=== PATIENT | male | born 1945 | race Caucasian/White ===

== ENCOUNTER → 2016-09-06 | Outpatient (CLI) | payer OTHER, BC ==
[~2016-09-06] MED LIST: ABIR1TAB PO; ASPEC81 PO; ASPI81TA21 PO; ATOR-22 PO; AZEL0.057; AZEL0.057 TOP; BIOTCAP2 PO; CALCTAB7 PO; DOCU-94 PO; FISHOIL PO; FNTTP25 TD; GLUCTAB7 PO; LEUP30IN3 IM; METR1GEL3 TOP; MTRG45 TOP; MULT-190 PO; MULT-506 PO; MULT-845 PO; OMEG120013 PO; PRED-301 PO; RXC/5 PO; SENN-65 PO; TAMS0.4C38 PO; XGEVA IM; XGVI IM; [UNRECOGNIZED DRUG - CODE]; [UNRECOGNIZED DRUG - CODE]; oxycodone hcl PO
--- NOTE | 2016-09-06 11:34 | DIAGNOSTIC IMAGING REPORT ---
ADDENDUM Addendum: Comparison was made to outside CT of the abdomen and pelvis from [facility] dated May 22, 2016. The size of numerous blastic metastases within the lower thorax has increased since exam of May 22, 2016 consistent with progression of blastic metastatic disease. Electronically signed by: Jp Pena M.D. 09/17/2016 8:01 AM Dictated Date/Time: 09/17/2016 8:[address] OF THE CHEST WITH IV CONTRAST CLINICAL HISTORY: Prostate cancer. COMPARISON STUDY: Chest CT June 04, 2016. TECHNIQUE: Following IV administration of 92 mL of Optiray-320, helical axial images of the chest were obtained. Images were viewed in the axial, sagittal and coronal planes. IV contrast was administered without complication. FINDINGS: The size and number of numerous blastic metastases has moderately increased since exam June 04, 2016. No pathologic fracture is identified. A 2.1 cm lesion within the T5 vertebral body previously measured approximately 1 cm. There has also been interval development of mild mediastinal and left hilar lymphadenopathy. An index left hilar node measures 1.5 cm in short axis diameter. This was previously normal in size. An index prevascular node measures 1.9 x 0.9 cm. Index precarinal lymph node measures 1.5 cm. The heart is mildly enlarged. There is no pericardial effusion. The previously described right middle lobe nodule has decreased in size. It now measures 5 mm. It previously measured 9 mm. Numerous tiny subpleural nodules and reticulation rib. Unchanged. The abdomen and pelvis will be reported separately. IMPRESSION: 1. Moderate progression of extensive blastic metastases since exam of June 04, 2016. 2. Interval development of mild mediastinal and left hilar lymphadenopathy. While nonspecific, this could reflect metastatic disease. 3. Interval decrease in size of the previously discussed right middle lobe nodule. Electronically signed by: Jp Pena M.D. 09/06/2016 11:33 AM Dictated Date/Time: 09/06/2016 11:22 AM
--- NOTE | 2016-09-06 11:35 | DIAGNOSTIC IMAGING REPORT ---
ADDENDUM Addendum: Images from an abdomen and pelvis CT on 05/22/2016 from [facility] were made available for comparison. The subtle hypodense subcentimeter hepatic lesions seen in the prior study are barely visible at this time. There appears to be a single 6 mm hypodense lesion persisting within the right hepatic lobe on image 96 of 486. No new hepatic lesions identified. Left-sided hydronephrosis has resolved. 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 Electronically signed by: Sterling Álvarez M.D. 09/13/2016 11:00 AM Dictated Date/Time: 09/13/2016 10:57 AM ORIGINAL REPORT ABDOMEN AND PELVIS CT WITH IV AND ORAL CONTRAST CT DOSE: 510.70 mGy.cm HISTORY: Prostate cancer. TECHNIQUE: Multiaxial CT images of the abdomen and pelvis were performed following the use of intravenous and oral contrast. COMPARISON STUDY: Abdomen and pelvis CT 01/05/2015. Chest CT 06/04/2016. Outside hospital abdomen and pelvis CT 12/02/2015. FINDINGS: Significant progression of the osteoblastic metastatic disease compared to the prior studies. L3-L5 posterior decompression and fusion. Severe disc space narrowing at L2-L3. Progressive calcification surrounding the L2-L3 disc space with progressive severe central canal narrowing at this location. The liver, gallbladder, pancreas, and spleen are unremarkable. Normal right adrenal gland. Stable 9 mm nodule within the left adrenal gland. No hydronephrosis. No retroperitoneal lymphadenopathy. Moderate bladder wall thickening, unchanged. No pelvic lymphadenopathy. Moderate stool within the colon. No bowel wall thickening or obstruction. IMPRESSION: 1. Progression of the osteoblastic metastatic disease. 2. Progressive calcification surrounding the severely narrowed L2-L3 disc space. This results in progressive severe central canal narrowing at this level. 3. Stable 9 mm left adrenal gland nodule. 4. Moderate bladder wall thickening, unchanged. Electronically signed by: Sterling Álvarez M.D. 09/06/2016 11:33 AM Dictated Date/Time: 09/06/2016 11:21 AM
--- NOTE | 2016-09-06 12:23 | DIAGNOSTIC IMAGING REPORT ---
WHOLE BODY BONE SCAN HISTORY: Prostate cancer. RADIOTRACER: 25.6 mCi Tc-99m MDP STUDY/IMAGES: Planar anterior and posterior whole body imaging was performed 3 hours following the intravenous administration of radiotracer. COMPARISON: Outside hospital bone scan 05/22/2016 and 12/02/2015. FINDINGS: Significant progression of near diffuse patchy radiotracer uptake seen within the majority of the axial and appendicular skeleton. No abnormal radiotracer uptake seen within the calvarium, forearms, or lower legs. Remaining osseous structures demonstrate radiotracer uptake consistent with metastatic disease. IMPRESSION: Significant progression of near diffuse patchy radiotracer uptake seen within the majority of the axial and appendicular skeleton as described above consistent with metastatic disease. Electronically signed by: Sterling Álvarez M.D. 09/06/2016 12:22 PM Dictated Date/Time: 09/06/2016 12:19 PM
== END | disposition home or self-care (01) ==
LOC: C.NUCL 07:55
PROVIDERS: ATTEND Internal Medicine Hematology & Oncology
DX: C61 Malignant neoplasm of prostate (principal); C79.51 Secondary malignant neoplasm of bone

== ENCOUNTER 2016-10-21 07:14 | Emergency (ER) | payer OTHER, BC ==
[~2016-10-21] VITALS: Ht 182.9 cm; Wt 68.0 kg
[~2016-10-21 07:14] MED LIST changes: -ASPI81TA21 PO; -MTRG45 TOP; -OMEG120013 PO; -RXC/5 PO; -XGVI IM; -[UNRECOGNIZED DRUG - CODE]
[2016-10-21 07:18] VITALS: BP 136/68; PULSE 71; TEMP 36.7; O2SAT 97; Ht 182.9 cm; Wt 68.0 kg
--- NOTE | 2016-10-21 07:46 | EMERGENCY ROOM VISIT NOTE ---
History Report prepared by Thiago: Ashanti Braden Under the Supervision of: Dr. Nic Montenegro D.O. First contact with patient: 07:20 Chief Complaint: LACERATION/CUT (SUT/DERMABOND) Stated Complaint: HIT HEAD ON SHELF Nursing Triage Summary: Triage Note: Pt reports he bent over and stood up and hit and cut the top of his head at approx 2200 last night. pt denies any loc. pt reports he takes 81mg asa daily. History of Present Illness The patient is a 71 year old male who presents to the Emergency Room with complaints of a scalp abrasion that occurred last night around 2200. The patient states that he stood up and hit the top of his head on a shelf. Throughout the night, he was unable to control the bleeding. He notes that he is a prostate cancer patient and is on his 3rd week of chemotherapy treatment. He has a low hemoglobin and is scheduled for transfusion tomorrow. He takes 81 mg aspirin daily. Source of History: patient Onset: 2200 last night Position: head Quality: other (abrasion) Timing: constant Review of Systems See HPI for pertinent positives & negatives. A total of 10 systems reviewed and were otherwise negative. Past Medical & Surgical Medical Problems: (1) Prostate cancer Family History No pertinent family history stated. Social History Smoking Status: Never Smoker Marital Status: Occupation Status: retired Current/Historical Medications Scheduled Abiraterone Acetate (Zytiga), 4 TAB PO DAILY Aspirin Enteric Coated (Ecotrin Or Generic *), 81 MG PO QPM Atorvastatin (Lipitor), 20 MG PO HS Azelaic Acid (Finacea), 1 APPLN TOP DAILY Biotin (Biotin 5000), 5 MG PO QPM Calcium Carbonate-Vitamin D W/ (Caltrate 600 Plus), 1 TAB PO BID Docusate Sodium (Colace), 1 CAP PO BID Fish Oil ([place]-3), 1 TAB PO BID Iuvrtxqubdy-Srfgzrdyczu-Npr C- (Glucosamine Chondroitin), 1 TAB PO BID Leuprolide Acetate (Lupron Depot), 30 MG IM q4 months Metronidazole Hcl (Metrogel), 1 % TOP HS Multiple Vitamins W/ Minerals (Centrum Silver Adult 50+), 1 TAB PO DAILY Multivitamin (Multivitamin), 1 TAB PO QPM Ocuvite Preservision (Ocuvite Preservision), 1 TAB PO QAM Prednisone (Prednisone), 5 MG PO BID Tamsulosin Hcl (Flomax), 0.8 MG PO BID [Xgeva], 120 MG IM Q4WK [oxycodone hcl], 5 MG PO DIRECTED Scheduled PRN Senna/Docusate Sod (Senokot S), 2 TAB PO DAILY PRN for Constipation Miscellaneous Medications Azelaic Acid (Finacea) Cabazitaxel (Jevtana), 20 MG Fentanyl (Fentanyl), 25 MCG Allergies Coded Allergies: Doxycycline (Verified Allergy, Intermediate, hives in mouth and on tongue , 10/21/16) Physical Exam Vital Signs Date Time Temp Pulse Resp B/P Pulse Ox O2 Delivery O2 Flow Rate FiO2 10/21/16 07:18 36.7 71 18 136/68 97 Room Air Physical Exam CONSTITUTIONAL/VITAL SIGNS: Reviewed / noted above. GENERAL: Non-toxic in appearance. INTEGUMENTARY: Warm, dry, and [place]. HEAD: Normocephalic. There is a dime sized abrasion to the top of the head with a small amount of capillary oozing. EYES: without scleral icterus or trauma. ENT/OROPHARYNX: clear and moist. LYMPHADENOPATHY/NECK: Is supple without lymphadenopathy or meningismus. RESPIRATORY: Lungs clear and equal. CARDIOVASCULAR: Regular rate and rhythm. GI/ABDOMEN: Soft and nontender. No organomegaly or pulsatile mass. No rebound or guarding. Normal bowel sounds. EXTREMITIES: Warm and well perfused. BACK: No CVA tenderness. NEUROLOGICAL: Intact without focal deficits. PSYCHIATRIC: normal affect. MUSCULOSKELETAL: Normally developed with good muscle tone. Medical Decision & Procedures ED Course 0728: The patient was evaluated in room A10. A complete history and physical examination was performed. 0741: I discussed the results and findings with the patient. He verbalized agreement of the treatment plan. The patient was discharged home. Medical Decision No evidence of significant head injury, fracture, or infection. The patient presents with a small scrape or abrasion to the scalp on the top of the head. This occurred 10 PM last night. It is been oozing since. Dermabond was applied to the wound. The capillary oozing appears to be controlled. The patient was felt to be stable for discharge. Impression Primary Impression: Scalp abrasion Scribe Attestation The scribe's documentation has been prepared under my direction and personally reviewed by me in its entirety. I confirm that the note above accurately reflects all work, treatment, procedures, and medical decision making performed by me. Departure Information Dispostion Home / Self-Care Referrals Ander De Paz M.D. (PCP) Patient Instructions My [facility]
[2016-10-21] MEDS ORDERED: MTRG45 TOP (07:54)
[2016-10-21] MEDS ORDERED: [UNRECOGNIZED DRUG - CODE] (07:54)
[2016-10-21] MEDS ORDERED: ASPI81TA21 PO (07:54)
[2016-10-21] MEDS ORDERED: RXC/5 PO (07:54)
[2016-10-21] MEDS ORDERED: OMEG120013 PO (07:54)
[2016-10-21] MEDS ORDERED: XGVI IM (07:54)
== END 2016-10-21 07:53 | disposition home or self-care (01) ==
LOC: C.EDB 07:15 → C.EDA 07:53
DX: S00.01XA Abrasion of scalp, initial encounter (principal); W22.09XA Striking against other stationary object, initial encounter; C61 Malignant neoplasm of prostate; Z79.82 Long term (current) use of aspirin; Z79.52 Long term (current) use of systemic steroids; Z79.899 Other long term (current) drug therapy

== ENCOUNTER → 2016-12-02 | Outpatient (CLI) | payer OTHER, BC ==
[~2016-12-02] MED LIST changes: -ABIR1TAB PO; -ASPEC81 PO; +ASPI81TA21 PO; -AZEL0.057; -FISHOIL PO; -METR1GEL3 TOP; +MTRG45 TOP; +OMEG120013 PO; +RXC/5 PO; -XGEVA IM; +XGVI IM; +[UNRECOGNIZED DRUG - CODE]; -oxycodone hcl PO
== END | disposition home or self-care (01) ==
LOC: C.LAB 11:35
PROVIDERS: ATTEND Internal Medicine Hematology & Oncology
DX: C61 Malignant neoplasm of prostate (principal)

== ENCOUNTER 2016-12-03 12:51 | Inpatient (IN) | payer OTHER, BC ==
[~2016-12-03] VITALS: Ht 182.9 cm; Wt 62.4 kg
[2016-12-03] MEDS ORDERED: SODIUM CHLORIDE 0.9% 1000ML 1,000 ML IV STA ×2 (13:20)
--- NOTE | 2016-12-03 14:00 | DIAGNOSTIC IMAGING REPORT ---
CHEST ONE VIEW PORTABLE CLINICAL HISTORY: Change in mental status. History of malignancy. COMPARISON STUDY: 11/02/2011, CT scan dated 09/06/2016 FINDINGS: The heart is normal in size. There is no failure. There is no lobar consolidation. There are no pleural effusions. There is a 7 mm density within the right midlung zone laterally.[ There is mild prominence of the left mid mediastinum. Mild adenopathy cannot be excluded. IMPRESSION: 1. 7 mm right midlung zone nodule 2. Minimal prominence of the left mid mediastinum. Mild adenopathy cannot be excluded. 3. No evidence of failure. No evidence of acute parenchymal consolidation. Electronically signed by: Akin Shelby M.D. 12/03/2016 1:58 PM Dictated Date/Time: 12/03/2016 1:56 PM
[2016-12-03 14:01] LABS: HEMATOCRIT 27.7 % (42-52); MEAN CELL VOLUME 92.3 fL (80-100); MEAN CORPUSCULAR HGB CONC 32.5 g/dl (32-36); WHITE BLOOD COUNT 4.93 K/uL (4.8-10.8)
[2016-12-03 14:06] LABS: MEAN PLATELET VOLUME 10.6 fL (7.4-10.4); PLATELET COUNT 62 K/uL (130-400)
[2016-12-03 14:19] LABS: ALT/SGPT 48 U/L (12-78); AST/SGOT 563 U/L (15-37); BLOOD UREA NITROGEN 21 mg/dl (7-18); BUN/CREATININE RATIO 21.4 (10-20); CALCIUM 8.2 mg/dl (8.5-10.1); CARBON DIOXIDE 26 mmol/L (21-32); CHLORIDE 103 mmol/L (98-107); GLUCOSE 135 mg/dl (70-99); MAGNESIUM 2.1 mg/dl (1.8-2.4); SODIUM 138 mmol/L (136-145)
[2016-12-03 14:20] LABS: INR 1.3 (0.9-1.1)
[2016-12-03 14:33] LABS: ALB/GLOB RATIO 0.7 (0.9-2); ALKALINE PHOSPHATASE 279 U/L (45-117)
[2016-12-03 14:40] LABS: ANISOCYTOSIS PRESENT; COMPLETE YES; EOSINOPHIL % 0.9 %; LYMPH ABS # 0.86 K/uL (1.2-3.4); LYMPHOCYTE % 17.4 %; META ABS # 0.13 K/uL (0-0); METAMYELOCYTE % 2.6 %; MYELOCYTE % 3.5 %; NEUTROPHILS % 72.1 %; TEAR DROP CELLS 1+
--- NOTE | 2016-12-03 14:50 | EMERGENCY ROOM VISIT NOTE ---
History Report prepared by Thiago: Batool Hernandez Under the Supervision of: Dr. Carlton Smith M.D. First contact with patient: 13:08 Chief Complaint: OTHER COMPLAINT Stated Complaint: EVAL DO TO CHEMO AND PROSTATE CANCER History of Present Illness The patient is a 71 year old male who presents to the Emergency Room with complaints of a referral by his doctor that occurred earlier today. The patient' s girlfriend states that Dr. Ochoa - Urology referred the patient into the ED for admission. The patient has end stage renal disease and advanced prostate cancer. The patient still makes urine and does not have a catheter in place. He follows with Dr. Ruby - Oncology. The patient saw Dr. Ruby one week ago and received IV saline. The patient's hemoglobin one week ago was around 9.5. The patient's girlfriend states that the patient has been going downhill since his last chemotherapy treatment on October 24. He received two blood transfusions after that treatment. Additionally, the patient has lost about 20- 30 lbs since then. The patient states that they stopped his chemotherapy treatments because they have not been working. The patient is experiencing shortness of breath especially with exertion, which his girlfriend states has been getting progressively worse. He is also experiencing nausea and has not been eating much over the last month. He denies fevers. The patient's girlfriend states that the patient experienced diarrhea October 24 to November 03, but that has resolved. The patient denies any pain and states that he has a fentanyl patch. Source of History: patient, spouse/significant other (girlfriend) Onset: earlier today Position: other (global) Quality: other (referral by doctor) Associated Symptoms: + SOB (worse with exertion), + nausea, No fevers Note: weight loss Review of Systems See HPI for pertinent positives & negatives. A total of 10 systems reviewed and were otherwise negative. Past Medical & Surgical Medical Problems: (1) Prostate cancer (2) Rhabdomyolysis (3) Severe protein-calorie malnutrition Family History Cancer Diabetes mellitus Heart disease Hypertension Social History Smoking Status: Never Smoker Marital Status: Occupation Status: retired Current/Historical Medications Scheduled Aspirin Enteric Coated (Ecotrin Or Generic), 81 MG PO QPM Atorvastatin (Lipitor), 20 MG PO HS Azelaic Acid (Finacea), 1 APPLN TOP DAILY Calcium Carbonate-Vitamin D W/ (Caltrate 600 Plus), 2 TAB PO DAILY Denosumab (Xgeva), 120 MG IM Q4WK Docusate Sodium (Colace), 100 MG PO BID Fentanyl (Fentanyl), 25 MCG TD [id number] Leuprolide Acetate (Lupron Depot), 30 MG IM q4 months Metronidazole HCl (Metronidazole), 1 APPLN TOP DAILY Multiple Vitamins W/ Minerals (Centrum Silver Adult 50+), 1 TAB PO DAILY Multivitamin (Multivitamin), 1 TAB PO QPM Ocuvite Preservision (Ocuvite Preservision), 1 TAB PO QAM [place]-3 Fatty Acids (Fish Oil), 2,400 MG PO DAILY Prednisone (Prednisone), 5 MG PO BID Tamsulosin Hcl (Flomax), 0.8 MG PO DAILY Scheduled PRN Oxycodone HCl (Oxycodone HCl), 5 MG PO Q4 PRN for Pain Senna/Docusate Sod (Senokot S), 2 TAB PO DAILY PRN for Constipation Allergies Coded Allergies: Doxycycline (Verified Allergy, Intermediate, hives in mouth and on tongue , 10/21/16) Physical Exam Vital Signs Date Time Temp Pulse Resp B/P Pulse Ox O2 Delivery O2 Flow Rate FiO2 12/03/16 14:20 68 14 113/68 96 Room Air 12/03/16 14:11 66 12/03/16 13:01 36.5 90 20 97/61 96 Room Air Physical Exam GENERAL: Patient is thin and frail, but in no acute distress. HEENT: No acute trauma, normocephalic atraumatic, mucous membranes moist, no nasal congestion, no scleral icterus. NECK: No stridor, no adenopathy, no meningismus, trachea is midline. LUNGS: Clear to auscultation bilaterally, no wheeze, no rhonchi, breath sounds equal. HEART: Without murmurs gallops or rubs, regular rate and rhythm. ABDOMEN: Soft, nontender, bowel sounds positive, no hernias, no peritonitis. EXTREMITIES: No cyanosis or edema, full range of motion of all the joints without pain or difficulty, no signs for acute trauma. NEUROLOGIC: Oriented x 3, no acute motor or sensory deficits, no focal weakness. SKIN: Pale, no rash, no jaundice, no diaphoresis. Medical Decision & Procedures ER Provider Diagnostic Interpretation: X-ray results as stated below per interpretation by me and the radiologist: CHEST ONE VIEW PORTABLE IMPRESSION: 1. 7 mm right midlung zone nodule 2. Minimal prominence of the left mid mediastinum. Mild adenopathy cannot be excluded. 3. No evidence of failure. No evidence of acute parenchymal consolidation. Electronically signed by: Akin Shelby M.D. 12/03/2016 1:58 PM Dictated Date/Time: 12/03/2016 1:56 PM Laboratory Results 12/03/16 13:34 Red Blood Count 3.00, Mean Corpuscular Volume 92.3, Mean Corpuscular Hemoglobin 30.0, Mean Corpuscular Hemoglobin Concent 32.5, Mean Platelet Volume 10.6 12/03/16 13:34 Test 12/03/16 13:34 White Blood Count 4.93 K/uL (4.8-10.8) Red Blood Count 3.00 M/uL (4.7-6.1) Hemoglobin 9.0 g/dL (14.0-18.0) Hematocrit 27.7 % (42-52) Mean Corpuscular Volume 92.3 fL (80-100) Mean Corpuscular Hemoglobin 30.0 pg (25-34) Mean Corpuscular Hemoglobin Concent 32.5 g/dl (32-36) Platelet Count 62 K/uL (130-400) Mean Platelet Volume 10.6 fL (7.4-10.4) RDW Standard Deviation 66.4 fL (36.4-46.3) RDW Coefficient of Variation 19.9 % (11.5-14.5) Nucleated RBC Absolute Count (auto) 0.31 K/uL (0-0) Neutrophils % (Manual) 72.1 % Lymphocytes % (Manual) 17.4 % Monocytes % (Manual) 3.5 % Eosinophils % (Manual) 0.9 % Metamyelocytes % 2.6 % Myelocytes % 3.5 % Nucleated Red Blood Cells % 6.4 % Neutrophils # (Manual) 3.55 K/uL (1.4-6.5) Total Absolute Neutrophils 3.55 K/uL (1.4-6.5) Lymphocytes # (Manual) 0.86 K/uL (1.2-3.4) Total Absolute Lymphocytes 0.86 K/uL (1.2-3.4) Monocytes # (Manual) 0.17 K/uL (0.11-0.59) Eosinophils # (Manual) 0.04 K/uL (0-0.5) Metamyelocytes # 0.13 K/uL (0-0) Myelocytes # 0.17 K/uL (0-0) Anisocytosis PRESENT Tear Drop Cells 1+ Prothrombin Time 14.0 SECONDS (9.0-12.0) Prothromb Time International Ratio 1.3 (0.9-1.1) Activated Partial Thromboplast Time 26.6 SECONDS (21.0-31.0) Partial Thromboplastin Ratio 1.0 Anion Gap 9.0 mmol/L (3-11) Est Creatinine Clear Calc Drug Dose 55.8 ml/min Estimated GFR () 87.4 Estimated GFR (Non- 75.4 BUN/Creatinine Ratio 21.4 (10-20) Calcium Level 8.2 mg/dl (8.5-10.1) Magnesium Level 2.1 mg/dl (1.8-2.4) Total Bilirubin 1.0 mg/dl (0.2-1) Aspartate Amino Transf (AST/SGOT) 563 U/L (15-37) Alanine Aminotransferase (ALT/SGPT) 48 U/L (12-78) Alkaline Phosphatase 279 U/L (45-117) Total Creatine Kinase 1522 U/L (39-308) Troponin I < 0.015 ng/ml (0-0.045) Total Protein 6.0 gm/dl (6.4-8.2) Albumin 2.5 gm/dl (3.4-5.0) Globulin 3.5 gm/dl (2.5-4.0) Albumin/Globulin Ratio 0.7 (0.9-2) Thyroid Stimulating Hormone (TSH) 1.200 uIu/ml (0.300-4.500) Laboratory results reviewed by me. Medications Administered Medications (Trade) Dose Ordered Sig/Ingrid Route Start Time Stop Time Status Last Admin Dose Admin Sodium Chloride 1,000 ml @ 999 mls/hr Q1H1M STAT IV 12/03/16 13:20 12/03/16 14:20 DC 12/03/16 13:20 999 MLS/HR Sodium Chloride (Nss 1000ml) 1,000 ml @ 200 mls/hr Q5H STAT IV 12/03/16 13:20 12/03/16 17:33 DC 12/03/16 13:20 200 MLS/HR ECG Indication: SOB/dyspnea Rate (beats per minute): 72 Rhythm: normal sinus Findings: no acute ischemic change, no ectopy ED Course 1312: The patient was evaluated in room A2. A complete history and physical exam was performed. 1320: Ordered Sodium Chloride 1000 ml @ 200 mls/hr IV, Sodium Chloride 1000 ml @ 999 mls/hr IV 1335: Discussed the patient's case with Dr. Radha HWANG. The patient will be evaluated for further management. 1337: Upon reexamination the patient is resting comfortably. I discussed results and treatment plan with the patient and his girlfriend. They verbalize agreement and understanding. The patient will be evaluated for further management. Medical Decision Differential diagnoses considered include worsening cancer, anemia, electrolyte imbalance, renal failure, infection, dehydration. There is no leukocytosis. Hemoglobin and platelet count are both somewhat low but neither are critical. No significant electrolyte abnormality or kidney failure. A few of the liver enzymes were elevated. There was no coagulopathy. Urinalysis does not show infection. EKG shows a normal sinus rhythm, no acute ischemia. Cardiac enzyme testing times one is not consistent with acute cardiac injury. Total CK was elevated consistent with some muscle breakdown and dehydration. Chest film showed chronic findings, no acute pneumonia or pneumothorax seen. No CHF. The patient received IV saline, his blood pressure improved. He will be staying in the hospital for failed outpatient treatment. He is losing weight, he is quite dehydrated, he cannot eat or drink. Hospice care will need to be discussed. The patient is aware of his findings and the need to stay in the hospital. I did speak to case management. The on-call hospitalist was consulted. Consults Time Called: 1322 Consulting Physician: Dr. Radha HWANG Returned Call: [phone] Discussed the patient's case with Dr. Radha HWANG. The patient will be evaluated for further management. Impression Primary Impression: Weakness Additional Impressions: Dehydration Prostate cancer Scribe Attestation The scribe's documentation has been prepared under my direction and personally reviewed by me in its entirety. I confirm that the note above accurately reflects all work, treatment, procedures, and medical decision making performed by me. Departure Information Dispostion Being Evaluated By Hospitalist Referrals ,Ander Smith M.D. (PCP) Patient Instructions My [facility] Problem Qualifiers
--- NOTE | 2016-12-03 15:01 | History and Physical ---
History & Physical Date & Time of Service: Dec 03, 2016 at 14:02 Chief Complaint: Eval Do To Chemo And Prostate Cancer Primary Care Physician: Andre De Paz M.D. History of Present Illness Source: patient, spouse 71yo male with known stage 4 prostate cancer who presents at the encouragement of his urologist. For the last month he has had failure to thrive with significant weight loss - about 20 pounds. Has had severe anorexia, diarrhea for several weeks, and considerable weakness. Last round of chemotherapy was October 24. Saw Dr. Ruby, his primary oncologist, about 1 week ago and he recommended hospice. Today he couldn't even get out of bed. Denies depression but states "I feel like dying" because he has inability to do ADLs, etc. Past Medical/Surgical History PMH: 1. prostate cancer - dx 2013 - stage 4 from the onset PSH: 1. lumbar back surgery 2011 - Dr. Angelo Landis 2. melanoma resection - right ear 3. knee arthroscopy Family History no family h/o prostate cancer mother - colon cancer - age 98 father - heart disease - CAD/GA; age 72 sister - melanoma, age 72 Social History Smoking Status: Never Smoker Alcohol Use: occasionally Marital Status: (2 sons) Housing status: lives with family (, in [place]) Occupational Status: retired (worked at [employer] in [place], [place] area then worked at [employer] ) Immunizations History of Influenza Vaccine: N/A History of Tetanus Vaccine?: Yes History of Pneumococcal: Yes History of Hepatitis B Vaccine: No Multi-Drug Resistant Organisms History of MDRO: No Allergies Coded Allergies: Doxycycline (Verified Allergy, Intermediate, hives in mouth and on tongue , 10/21/16) Home Medications Scheduled Aspirin Enteric Coated (Ecotrin Or Generic), 81 MG PO QPM Atorvastatin (Lipitor), 20 MG PO HS Azelaic Acid (Finacea), 1 APPLN TOP DAILY Calcium Carbonate-Vitamin D W/ (Caltrate 600 Plus), 2 TAB PO DAILY Denosumab (Xgeva), 120 MG IM Q4WK Docusate Sodium (Colace), 100 MG PO BID Fentanyl (Fentanyl), 25 MCG TD [id number] Leuprolide Acetate (Lupron Depot), 30 MG IM q4 months Metronidazole HCl (Metronidazole), 1 APPLN TOP DAILY Multiple Vitamins W/ Minerals (Centrum Silver Adult 50+), 1 TAB PO DAILY Multivitamin (Multivitamin), 1 TAB PO QPM Ocuvite Preservision (Ocuvite Preservision), 1 TAB PO QAM [place]-3 Fatty Acids (Fish Oil), 2,400 MG PO DAILY Prednisone (Prednisone), 5 MG PO BID Tamsulosin Hcl (Flomax), 0.8 MG PO DAILY Scheduled PRN Oxycodone HCl (Oxycodone HCl), 5 MG PO Q4 PRN for Pain Senna/Docusate Sod (Senokot S), 2 TAB PO DAILY PRN for Constipation Review of Systems Constitutional: + fatigue, + weakness, + weight loss, No chills, No fever Eyes: No discharge, No redness ENT: No dental problems, No nasal symptoms, No sore throat, No trouble swallowing Respiratory: + cough, + dyspnea on exertion (started over last month; worse last 1-2 weeks), No sputum Cardiovascular: + edema, No PND, No chest pain, No orthopnea Abdomen: + diarrhea, No GI bleeding, No nausea, No pain, No vomiting Musculoskeletal: No joint pain Genitourinary - Male: No dysuria, No hematuria Neurologic: + weakness Psychiatric: No depression symptoms Endocrine: + fatigue Hematologic / Lymphatic: + abnormal bleeding/bruising Integumentary: No rash Physical Exam Vital Signs Date Time Temp Pulse Resp B/P Pulse Ox O2 Delivery O2 Flow Rate FiO2 12/03/16 13:01 36.5 90 20 97/61 96 Room Air General Appearance: no apparent distress, + cachetic, + thin Head: normocephalic, atraumatic Eyes: PERRL, sclerae normal ENT: TMs normal, pharynx normal, + pertinent finding (right ear deformity from prior melanoma resection) Neck: supple, no adenopathy, thyroid normal, no JVD Respiratory/Chest: lungs clear, normal breath sounds, no respiratory distress, no accessory muscle use Cardiovascular: regular rate, rhythm, no gallop, no murmur, normal peripheral pulses Abdomen/GI: normal bowel sounds, non tender, soft, + hepatomegaly (liver edge palpable ) Back: normal inspection Extremities/Musculoskelatal: + pedal edema (trace b/l ) Neurologic/Psych: no motor/sensory deficits, alert, normal reflexes, oriented x 3 Skin: no rash, + pallor Lymphatic: no adenopathy (cervical ) Diagnostics Laboratory Results Results Past 24 Hours Test 12/03/16 13:34 Range/Units White Blood Count 4.93 4.8-10.8 K/uL Red Blood Count 3.00 4.7-6.1 M/uL Hemoglobin 9.0 14.0-18.0 g/dL Hematocrit 27.7 42-52 % Mean Corpuscular Volume 92.3 80-100 fL Mean Corpuscular Hemoglobin 30.0 25-34 pg Mean Corpuscular Hemoglobin Concent 32.5 32-36 g/dl RDW Standard Deviation 66.4 36.4-46.3 fL RDW Coefficient of Variation 19.9 11.5-14.5 % Nucleated RBC Absolute Count (auto) 0.31 0-0 K/uL Nucleated Red Blood Cells % 6.4 % Diagnostic Radiology cxr: IMPRESSION: 1. 7 mm right midlung zone nodule 2. Minimal prominence of the left mid mediastinum. Mild adenopathy cannot be excluded. 3. No evidence of failure. No evidence of acute parenchymal consolidation. EKG EKG - my reading - NSR, nl intervals, no ST changes Impression Assessment and Plan Pleasant 71yo male with known, progressive stage 4 prostate cancer presenting with: 1. severe protein calorie malnutrition/weight loss/failure to thrive - due to the stage 4 prostate cancer itself. [employer] consult to help with supplements as he is not tolerating standard supplements at home. IVF. Agree with hospice as previous. 2. dyspnea, LE edema - concerning for DVT/PE. Dopplers of legs and CT chest PE protocol tonight. Dyspnea could also be from metastatic disease, deconditioning, anemia, etc. 3. abnormal LFTs - concerning for liver mets. We will see part of the liver on CT chest. 4. rhabdomyolysis - due to lipitor? prolonged immobilization? other? stop lipitor hydrate repeat CPK in am 5. BPH - continue flomax; check u/a and urine cx, r/o UTI. 6. DVT proph - platelets are in the 60s. Chemical means contraindicated. Await dopplers. 7. Mildly elevated INR, thrombocytopenia - if liver mets are seen then these 2 issues are secondary to this. 8. social - patient was already enrolled in hospice for the last week. Will continue such. Ask palliative care to see to help coordinate his care. SW consult for help with [place] placement per his wishes. Will see if patient can be admitted under hospice status. 9. code status - DNR. Level of Care Med/Surg Advanced Directives Existing Advance Directive: Yes Existing Living Will: Yes Existing Power of [employer]: Yes Resuscitation Status DO NOT RESUSCITATE VTE Prophylaxis Risk Level: High Given or contraindicated: Contraindicated Social Service Consult Cancer Patient Under [place] Note total time about 70 minutes Additional Copies To Richard Ruby D.O.; Ander De Paz M.D.; Jose Ochoa M.D.
[2016-12-03] MEDS ORDERED: MAGNESIUM HYDROXIDE SUSP 30 ML UDC PO PRN (15:30)
[2016-12-03] MEDS ORDERED: ALUMINUM/MAGNESIUM/SIMETH (MAALOX MAX) 30 ML UDC PO PRN (15:30)
[2016-12-03] MEDS ORDERED: DOCUSATE SODIUM/SENNA 50/8.6MG TAB PO PRN (15:30)
[2016-12-03] MEDS ORDERED: OPTIRAY 320 IV PRN (15:30)
[2016-12-03 15:38] VITALS: O2SAT 96; Ht 182.9 cm; Wt 62.4 kg
--- NOTE | 2016-12-03 16:03 | DIAGNOSTIC IMAGING REPORT ---
ULTRASOUND BILATERAL LOWER EXTREMITY VENOUS CLINICAL HISTORY: Lower extremity edema. COMPARISON STUDY: Bilateral lower extremity venous ultrasound dated 11/03/2014. TECHNIQUE: Real-time, grayscale, and color Doppler sonography of the deep veins of the right and left lower extremity was performed from the inguinal crease to the calf. Compression and augmentation were utilized. FINDINGS: There is no sonographic evidence of deep venous thrombosis identified in the right or left lower extremity. The common femoral, superficial femoral, and popliteal veins are patent and normally compressible bilaterally. The greater saphenous vein and the profunda femoris vein at the junction with the common femoral vein are clear in both legs. The visualized calf veins are patent bilaterally. IMPRESSION: There is no sonographic evidence of deep venous thrombosis identified in the right or left lower extremity. Electronically signed by: Carlton Mcdaniel M.D. 12/03/2016 4:00 PM Dictated Date/Time: 12/03/2016 4:00 PM
[2016-12-03 16:46] VITALS: BP 111/66; PULSE 70; TEMP 36.5; O2SAT 92
[2016-12-03 16:52] LABS: URINE APPEARANCE CLEAR (CLEAR); URINE BILIRUBIN NEG (NEG); URINE COLOR YELLOW; URINE NITRITE NEG (NEG); URINE PH 5.5 (4.5-7.5); URINE SPECIFIC GRAVITY 1.012 (1.000-1.030); UROBILINOGEN NEG (NEG); ZZUR CULT IF INDIC CLEAN CATCH NO
[2016-12-03 16:53] LABS: MANUAL MICROSCOPIC REQUIRED? NO; REVIEW REQ? NO
[2016-12-03] MEDS: SODIUM CHLORIDE 0.9% 1000ML 1,000 ML IV SCH (17:52)
--- NOTE | 2016-12-03 18:55 | DIAGNOSTIC IMAGING REPORT ---
CT ANGIOGRAM OF THE CHEST CLINICAL HISTORY: Generalized weakness. Change in mental status. Dyspnea. COMPARISON STUDY: Chest x-ray dated 12/03/2016. Chest CT scans dated 09/06/2016 and 09/16/2014. TECHNIQUE: Following the IV administration of 93 cc of Optiray 320, CT angiogram of the chest was performed from the upper abdomen to the thoracic inlet utilizing the pulmonary embolus protocol. Images are reviewed in the axial, sagittal, and coronal planes. 3-D MIPS images are created and assessed. IV contrast was administered without complication. CT DOSE: 241.48 mGy.cm FINDINGS: Thyroid: Imaged portions of the thyroid gland are normal in size and attenuation. Thoracic aorta: The thoracic aorta is normal in caliber and demonstrates 4-vessel variant arch anatomy. No dissection is seen. Pulmonary vasculature: The pulmonary trunk is normal in caliber. There are no filling defects identified in main, lobar, or segmental pulmonary branches to suggest pulmonary embolus. Heart: The heart is normal in size and configuration, and without pericardial effusion. There are coronary artery calcifications. Lungs and pleural spaces: Chronic subpleural reticulation and interstitial thickening is similar to previous. No airspace consolidation is identified typical for pneumonia and there is no pleural effusion. A 9 mm nodule is identified in the lingula on image #72. A 6 cm nodule is seen in the right lower lobe on image 134 additional smaller nodules are identified. The trachea appears clear. Mediastinum: Mediastinal adenopathy has modestly progressed. A prevascular node on image #205 measures 1.3 cm in short axis. A precarinal node on image #222 measures 1.8 cm short axis. Lori: Hilar adenopathy has modestly progressed from previous. The largest hilar node on the left measures up to 1.9 cm in short axis. Axillae: There is no axillary lymphadenopathy. Upper abdomen: A 2 cm left adrenal nodule is again noted. A smaller adrenal nodule is noted on the right. These appear increased in size from previous. The liver is heterogeneous and numerous low-attenuation lesions are identified. The partially imaged kidneys demonstrate cortical atrophy. Skeletal structures: The skeletal structures are osteopenic. There is multifocal osteoblastic metastatic disease. This is not appreciably changed from 09/06/2016. Vertebral body height is maintained throughout the thoracic spine. Soft tissues: The patient is cachectic. IMPRESSION: 1. There is no evidence of pulmonary embolus in the main, lobar, or segmental pulmonary arteries. 2. There is no airspace consolidation typical for pneumonia or pleural effusion. 3. Progressive mediastinal and hilar lymphadenopathy as compared to 09/06/2016. 4. There are scattered pulmonary nodules identified measuring up to 9 mm, which are new from 09/06/2016. Although these could potentially be on an inflammatory basis, the appearance is concerning for progressive metastatic disease. 5. Adrenal nodules appear to have increased in size from 09/06/2016 and are presumed metastatic. 6. Diffuse/multifocal osteoblastic metastatic disease has not appreciably changed. 7. There are numerous low-attenuation hepatic lesions identified. The appearance is highly concerning for multifocal hepatic metastatic disease. Electronically signed by: Carlton Mcdaniel M.D. 12/03/2016 6:53 PM Dictated Date/Time: 12/03/2016 6:42 PM
[2016-12-03] MEDS: DOCUSATE SODIUM 100 MG CAP PO SCH (19:41)
[2016-12-03] MEDS ORDERED: FENTANYL PATCH REMOVE & WASTE SCH (19:59)
[2016-12-03] MEDS ORDERED: FENTANYL 25 MCG/HR TDSY TD SCH (20:00)
--- NOTE | 2016-12-03 21:49 | Progress Note ---
Progress Note Date of Service Dec 03, 2016. Progress Note 3 After dopplers/CTA chest were completed I spoke with the patient & his at bedside. Reviewed results - no DVT, no PE, no pneumonia. There is evidence of significant progression of his prostate ca. There are now mets in the liver, adrenal glands, lungs, mediastinum, etc. He could have secondary adrenal insufficiency due to adrenal destruction from the mets seen. Will increase prednisone to 20mg BID and consider, at time of discharge, a higher amount of daily steroid. Will have SW, palliative care, and heme/onc see in AM. Zaki PAUL MD
[2016-12-03 23:00] VITALS: BP 111/64; PULSE 67; TEMP 36.8; O2SAT 90
[2016-12-03] MEDS: CHECK FENTANYL PATCH PLACEMENT SCH (23:46)
[2016-12-04] MEDS: SODIUM CHLORIDE 0.9% 1000ML 1,000 ML IV SCH ×3 (01:27→20:10)
[2016-12-04 04:17] VITALS: BP 105/57; PULSE 67; O2SAT 91
[2016-12-04 07:03] LABS: BUN/CREATININE RATIO 20.1 (10-20); CALCIUM 7.5 mg/dl (8.5-10.1); CREATININE 0.89 mg/dl (0.60-1.40); POTASSIUM 4.2 mmol/L (3.5-5.1)
[2016-12-04 07:19] VITALS: BP 110/63; PULSE 65; TEMP 36.3; O2SAT 90
[2016-12-04] MEDS ORDERED: TAMSULOSIN HCL 0.4 MG CAP PO SCH (08:00)
[2016-12-04] MEDS ORDERED: CEROVITE ADV FORMULA TAB PO SCH (08:00)
[2016-12-04] MEDS: METRONIDAZOLE 0.75% TOPICAL GEL 45 GM TUBE TOP SCH (08:30)
[2016-12-04] MEDS: POLYETHYLENE (MIRALAX) 17 GM PACK PO SCH (08:30)
[2016-12-04] MEDS: CEROVITE ADV FORMULA TAB PO SCH (08:30)
[2016-12-04] MEDS: DOCUSATE SODIUM 100 MG CAP PO SCH ×2 (08:30→20:12)
[2016-12-04] MEDS: CHECK FENTANYL PATCH PLACEMENT SCH ×2 (08:32→16:42)
[2016-12-04] MEDS ORDERED: NURSING DECISION MEDICATION ORDER SCH (08:45)
--- NOTE | 2016-12-04 10:08 | Palliative Care Consultation ---
Consultation Date of Consultation: Dec 04, 2016. Requesting Physician: Dr. Garcia Attending Physician: Dr. Chirinos Reason for Consultation: Hospice patient History of Present Illness This 71 year old male patient presented to the ED yesterday with c/o severe weakness and failure to thrive. This gentleman has stage IV prostate cancer and was recently placed on hospice due to failed treatment, decline in functional status, and failure to thrive. Yesterday, patient was unable to get out of bed, so his called Dr. Ochoa, patient's urologist who they have developed a relationship with, who suggested they come to the ED. Had work-up for DVT/PE- negative for both. CT scan did show progression of metastatic disease, no pneumonia. Patient's is concerned that she is unable to care for him at home, so they are requesting placement at [facility]. Palliative care consulted to assist with coordination of care. I met with the patient and his , Natalie Weiss, in room 408. Patient is tired, but awake and oriented x4. We discussed his condition and goals of care. Patient really just wants comfort care and to continue with hospice. Plan is still to go to [facility]. Patient already had a POLST form filled out, but no provider signature. I went over the POLST and his decisions on it. He confirmed his wishes and I did sign the POLST. Copy in the chart, original with patient. He denies any pain at all at this time, no other discomfort or symptoms. Past Medical/Surgical History Medical History: Metastatic prostate CA Surgical History: Lumbar surgery Melanoma resection Knee arthroscopy Social History Smoking Status: Never Smoker History of Alcohol Use: No Marital Status: (2 sons) Housing Status: lives with family (, in [place]) Occupation Status: retired (worked at [email or web address] in [place], [place] area then worked at [employer] ) Review of Systems Constitutional: + fatigue, + weakness, + weight loss Respiratory: No cough, No dyspnea on exertion, No shortness of breath Cardiac: No chest pain, No edema Abdomen: + diarrhea (has resolved), No nausea, No pain, No vomiting Psychiatric: No anxiety, No depression symptoms Allergies Coded Allergies: Doxycycline (Verified Allergy, Intermediate, hives in mouth and on tongue , 10/21/16) Medications Current Inpatient Medications Medications (Trade) Dose Ordered Sig/Ingrid Route Start Time Stop Time Status Last Admin Dose Admin Ioversol (Optiray 320) 100 ml UD PRN IV 12/03/16 15:30 12/07/16 15:29 Acetaminophen (Tylenol Tab) 650 mg Q4H PRN PO 12/03/16 15:30 01/02/17 15:29 Al Hydrox/Mg Hydrox/Simethicone (Maalox Max Susp) 15 ml Q4H PRN PO 12/03/16 15:30 01/02/17 15:29 Magnesium Hydroxide (Milk Of Magnesia Susp) 30 ml Q6H PRN PO 12/03/16 15:30 01/02/17 15:29 Polyethylene (Miralax Powder Packet) 17 gm DAILY PO 12/04/16 08:00 01/03/17 08:59 Ondansetron HCl (Zofran Inj) 4 mg Q6H PRN IV 12/03/16 15:30 01/02/17 15:29 Docusate Sodium (coLACE CAP) 100 mg BID PO 12/03/16 20:00 01/02/17 20:59 12/04/16 08:30 100 MG Metronidazole HCl (Metrogel Topical Gel) 1 appln DAILY TOP 12/04/16 08:00 12/14/16 08:59 Multivitamins/ Minerals (Multivitamin W/ Minerals Tab) 1 tab DAILY PO 12/04/16 08:00 01/03/17 08:59 12/04/16 08:30 1 TAB Prednisone (PredniSONE TAB) 20 mg BID PO 12/03/16 15:30 01/02/17 15:29 12/04/16 08:30 20 MG Senna/Docusate Sodium (Senokot S Tab) 2 tab DAILY PRN PO 12/03/16 15:30 01/02/17 15:29 Oxycodone HCl 5 mg 5 mg Q4H PRN PO 12/03/16 15:30 12/17/16 15:29 Sodium Chloride (Nss 1000ml) 1,000 ml @ 100 mls/hr Q10H IV 12/03/16 15:30 01/02/17 15:29 12/04/16 01:27 100 MLS/HR Miscellaneous Information (Check Fentanyl Patch Placement) 1 ea QS N/A 12/04/16 00:00 01/03/17 00:00 12/04/16 08:32 1 EA Fentanyl (Duragesic Patch) 25 mcg Q3D@1999 TD 12/04/16 20:00 12/18/16 19:59 Miscellaneous (Fentanyl Patch Remove & Waste) 1 ea Q3D@1958 N/A 12/04/16 19:59 01/03/17 19:58 Tamsulosin HCl (Flomax Cap) 0.8 mg HS PO 12/04/16 21:00 01/03/17 20:59 Physical Exam Date Time Temp Pulse Resp B/P Pulse Ox O2 Delivery O2 Flow Rate FiO2 12/04/16 07:19 36.3 65 18 110/63 90 Room Air 12/04/16 04:17 67 18 105/57 91 Room Air 12/03/16 23:50 Room Air 12/03/16 23:00 36.8 67 20 111/64 90 Room Air 12/03/16 19:30 Room Air 12/03/16 16:46 36.5 70 18 111/66 92 Room Air 12/03/16 15:54 58 113/68 12/03/16 15:38 96 Room Air 12/03/16 14:20 68 14 113/68 96 Room Air 12/03/16 14:11 66 12/03/16 13:01 36.5 90 20 97/61 96 Room Air General Appearance: no apparent distress, + cachetic, + thin ENT: hearing grossly normal Neck: supple, no JVD Respiratory: no respiratory distress, no accessory muscle use, + decreased breath sounds Cardiovascular: regular rate, rhythm, no edema, + normal peripheral pulses Abdomen: normal bowel sounds, non tender, soft Neurologic/Psychiatric: alert, normal mood/affect, oriented x 3 Skin: + pallor Laboratory Results Last 24 Hours Test 12/03/16 13:34 12/03/16 15:53 12/04/16 05:49 White Blood Count 4.93 K/uL Red Blood Count 3.00 M/uL Hemoglobin 9.0 g/dL Hematocrit 27.7 % Mean Corpuscular Volume 92.3 fL Mean Corpuscular Hemoglobin 30.0 pg Mean Corpuscular Hemoglobin Concent 32.5 g/dl Platelet Count 62 K/uL Mean Platelet Volume 10.6 fL RDW Standard Deviation 66.4 fL RDW Coefficient of Variation 19.9 % Nucleated RBC Absolute Count (auto) 0.31 K/uL Neutrophils % (Manual) 72.1 % Lymphocytes % (Manual) 17.4 % Monocytes % (Manual) 3.5 % Eosinophils % (Manual) 0.9 % Metamyelocytes % 2.6 % Myelocytes % 3.5 % Nucleated Red Blood Cells % 6.4 % Neutrophils # (Manual) 3.55 K/uL Total Absolute Neutrophils 3.55 K/uL Lymphocytes # (Manual) 0.86 K/uL Total Absolute Lymphocytes 0.86 K/uL Monocytes # (Manual) 0.17 K/uL Eosinophils # (Manual) 0.04 K/uL Metamyelocytes # 0.13 K/uL Myelocytes # 0.17 K/uL Anisocytosis PRESENT Tear Drop Cells 1+ Prothrombin Time 14.0 SECONDS Prothromb Time International Ratio 1.3 Activated Partial Thromboplast Time 26.6 SECONDS Partial Thromboplastin Ratio 1.0 Sodium Level 138 mmol/L 139 mmol/L Potassium Level 4.0 mmol/L 4.2 mmol/L Chloride Level 103 mmol/L 108 mmol/L Carbon Dioxide Level 26 mmol/L 21 mmol/L Anion Gap 9.0 mmol/L 10.0 mmol/L Blood Urea Nitrogen 21 mg/dl 18 mg/dl Creatinine 1.00 mg/dl 0.89 mg/dl Est Creatinine Clear Calc Drug Dose 55.8 ml/min 64.1 ml/min Estimated GFR () 87.4 99.7 Estimated GFR (Non- 75.4 86.0 BUN/Creatinine Ratio 21.4 20.1 Random Glucose 135 mg/dl 159 mg/dl Calcium Level 8.2 mg/dl 7.5 mg/dl Magnesium Level 2.1 mg/dl Total Bilirubin 1.0 mg/dl Aspartate Amino Transf (AST/SGOT) 563 U/L Alanine Aminotransferase (ALT/SGPT) 48 U/L Alkaline Phosphatase 279 U/L Total Creatine Kinase 1522 U/L 1549 U/L Troponin I < 0.015 ng/ml Total Protein 6.0 gm/dl Albumin 2.5 gm/dl Globulin 3.5 gm/dl Albumin/Globulin Ratio 0.7 Thyroid Stimulating Hormone (TSH) 1.200 uIu/ml Urine Color YELLOW Urine Appearance CLEAR Urine pH 5.5 Urine Specific [place] 1.012 Urine Protein NEG Urine Glucose (UA) NEG Urine Ketones NEG Urine Occult Blood NEG Urine Nitrite NEG Urine Bilirubin NEG Urine Urobilinogen NEG Urine Leukocyte Esterase NEG Assessment & Plan Palliative Performance Scale: 40 % Problem list: Weakness Fatigue Metastatic prostate CA- now to adrenal glands Hospice patient Goals of care (Z51.5) Palliative care plan: discussed with patient and . -Comfort measures only -Patient is okay with continuing IVF while here since he was dehydrated from diarrhea -POLST form completed as follows: DNR/DNI, comfort measures only, use or limitation of abx with comfort as the goal, no artificial hydration/nutrition -[facility] with hospice -Would recommend continuing higher dose of prednisone- might get some secondary benefits such as increased appetite and energy. Thank you kindly for this consult. Please contact me with any further palliative care needs.
[2016-12-04] MEDS: ONDANSETRON INJ 2 MG/ML 2 ML VIAL IV PRN (11:00)
[2016-12-04 11:22] VITALS: BP 104/64; PULSE 73; TEMP 36.5; O2SAT 92
--- NOTE | 2016-12-04 12:46 | Hospitalist Progress Note ---
Hospitalist Progress Note Date of Service Dec 04, 2016. Subjective Pt evaluation today including: conversation w/ patient, conversation w/ family , physical exam, chart review Poor oral intake. feels improved. Medications Medications (Trade) Dose Ordered Sig/Ingrid Route Start Time Stop Time Status Last Admin Dose Admin Sodium Chloride 1,000 ml @ 999 mls/hr Q1H1M STAT IV 12/03/16 13:20 12/03/16 14:20 DC 12/03/16 13:20 999 MLS/HR Sodium Chloride (Nss 1000ml) 1,000 ml @ 200 mls/hr Q5H STAT IV 12/03/16 13:20 12/03/16 17:33 DC 12/03/16 13:20 200 MLS/HR Ondansetron HCl (Zofran Inj) 4 mg Q6H PRN IV 12/03/16 15:30 01/02/17 15:29 12/04/16 11:00 4 MG Docusate Sodium (coLACE CAP) 100 mg BID PO 12/03/16 20:00 01/02/17 20:59 12/04/16 08:30 100 MG Multivitamins/ Minerals (Multivitamin W/ Minerals Tab) 1 tab DAILY PO 12/04/16 08:00 01/03/17 08:59 12/04/16 08:30 1 TAB Prednisone 20 mg 20 mg BID PO 12/03/16 15:30 01/02/17 15:29 12/04/16 08:30 20 MG Sodium Chloride (Nss 1000ml) 1,000 ml @ 100 mls/hr Q10H IV 12/03/16 15:30 01/02/17 15:29 12/04/16 11:02 100 MLS/HR Miscellaneous Information (Check Fentanyl Patch Placement) 1 ea QS N/A 12/04/16 00:00 01/03/17 00:00 12/04/16 08:32 1 EA Objective Vital Signs Date Time Temp Pulse Resp B/P Pulse Ox O2 Delivery O2 Flow Rate FiO2 12/04/16 11:22 36.5 73 20 104/64 92 12/04/16 08:30 Room Air 12/04/16 07:19 36.3 65 18 110/63 90 Room Air 12/04/16 04:17 67 18 105/57 91 Room Air 12/03/16 23:50 Room Air 12/03/16 23:00 36.8 67 20 111/64 90 Room Air 12/03/16 19:30 Room Air 12/03/16 16:46 36.5 70 18 111/66 92 Room Air 12/03/16 15:54 58 113/68 12/03/16 15:38 96 Room Air 12/03/16 14:20 68 14 113/68 96 Room Air 12/03/16 14:11 66 12/03/16 13:01 36.5 90 20 97/61 96 Room Air Physical Exam General Appearance: + thin Neck: supple, thyroid normal, no JVD Cardiovascular: regular rate, rhythm, no edema, no murmur Abdomen: normal bowel sounds, non tender, soft Neurologic/Psychiatric: alert, oriented x 3 Skin: + pallor Laboratory Results Last 24 Hours Test 12/03/16 13:34 12/03/16 15:53 12/04/16 05:49 White Blood Count 4.93 K/uL Red Blood Count 3.00 M/uL Hemoglobin 9.0 g/dL Hematocrit 27.7 % Mean Corpuscular Volume 92.3 fL Mean Corpuscular Hemoglobin 30.0 pg Mean Corpuscular Hemoglobin Concent 32.5 g/dl Platelet Count 62 K/uL Mean Platelet Volume 10.6 fL RDW Standard Deviation 66.4 fL RDW Coefficient of Variation 19.9 % Nucleated RBC Absolute Count (auto) 0.31 K/uL Neutrophils % (Manual) 72.1 % Lymphocytes % (Manual) 17.4 % Monocytes % (Manual) 3.5 % Eosinophils % (Manual) 0.9 % Metamyelocytes % 2.6 % Myelocytes % 3.5 % Nucleated Red Blood Cells % 6.4 % Neutrophils # (Manual) 3.55 K/uL Total Absolute Neutrophils 3.55 K/uL Lymphocytes # (Manual) 0.86 K/uL Total Absolute Lymphocytes 0.86 K/uL Monocytes # (Manual) 0.17 K/uL Eosinophils # (Manual) 0.04 K/uL Metamyelocytes # 0.13 K/uL Myelocytes # 0.17 K/uL Anisocytosis PRESENT Tear Drop Cells 1+ Prothrombin Time 14.0 SECONDS Prothromb Time International Ratio 1.3 Activated Partial Thromboplast Time 26.6 SECONDS Partial Thromboplastin Ratio 1.0 Sodium Level 138 mmol/L 139 mmol/L Potassium Level 4.0 mmol/L 4.2 mmol/L Chloride Level 103 mmol/L 108 mmol/L Carbon Dioxide Level 26 mmol/L 21 mmol/L Anion Gap 9.0 mmol/L 10.0 mmol/L Blood Urea Nitrogen 21 mg/dl 18 mg/dl Creatinine 1.00 mg/dl 0.89 mg/dl Est Creatinine Clear Calc Drug Dose 55.8 ml/min 64.1 ml/min Estimated GFR () 87.4 99.7 Estimated GFR (Non- 75.4 86.0 BUN/Creatinine Ratio 21.4 20.1 Random Glucose 135 mg/dl 159 mg/dl Calcium Level 8.2 mg/dl 7.5 mg/dl Magnesium Level 2.1 mg/dl Total Bilirubin 1.0 mg/dl Aspartate Amino Transf (AST/SGOT) 563 U/L Alanine Aminotransferase (ALT/SGPT) 48 U/L Alkaline Phosphatase 279 U/L Total Creatine Kinase 1522 U/L 1549 U/L Troponin I < 0.015 ng/ml Total Protein 6.0 gm/dl Albumin 2.5 gm/dl Globulin 3.5 gm/dl Albumin/Globulin Ratio 0.7 Thyroid Stimulating Hormone (TSH) 1.200 uIu/ml Urine Color YELLOW Urine Appearance CLEAR Urine pH 5.5 Urine Specific [place] 1.012 Urine Protein NEG Urine Glucose (UA) NEG Urine Ketones NEG Urine Occult Blood NEG Urine Nitrite NEG Urine Bilirubin NEG Urine Urobilinogen NEG Urine Leukocyte Esterase NEG Assessment and Plan Pleasant 71yo male with known, progressive stage 4 prostate cancer presenting with: 1. severe protein calorie malnutrition/weight loss/failure to thrive - due to the stage 4 prostate cancer itself. Roofing Laborer consult to help with supplements as he is not tolerating standard supplements at home. IVF. Agree with hospice as previous. 2. dyspnea, LE edema - concerning for DVT/PE. CT chest is negative for PE. 3. abnormal LFTs - Likely due to liver mets. 4. rhabdomyolysis - due to lipitor? prolonged immobilization? other? stop lipitor hydrate CPK improving 5. BPH - continue flomax; check u/a and urine cx, r/o UTI. 6. DVT proph - platelets are in the 60s. Chemical means contraindicated. Dopplers are neg for DVT. 7. Mildly elevated INR, thrombocytopenia - if liver mets are seen then these 2 issues are secondary to this. 8. social - patient was already enrolled in hospice for the last week. Will continue such. Ask palliative care to see to help coordinate his care. SW consult for help with [facility] placement per his wishes. Will see if patient can be admitted under hospice status. 9. code status - DNR.
[2016-12-04 14:49] VITALS: BP 95/58; PULSE 69; TEMP 36.7; O2SAT 90
[2016-12-04 16:10] VITALS: O2SAT 90
[2016-12-04 19:39] VITALS: BP 93/50; PULSE 69; TEMP 36.1; O2SAT 91
[2016-12-04] MEDS ORDERED: FENTANYL PATCH REMOVE & WASTE SCH (19:59)
[2016-12-04] MEDS ORDERED: FENTANYL 25 MCG/HR TDSY TD SCH (20:00)
[2016-12-04] MEDS: TAMSULOSIN HCL 0.4 MG CAP PO SCH (20:13)
[2016-12-04] MEDS: ACETAMINOPHEN 325 MG TAB PO PRN (21:41)
[2016-12-04] MEDS: OXYCODONE HCL IR 5 MG TAB (IMMEDIATE RELEASE) PO PRN (22:17)
[2016-12-05] VITALS: O2SAT 91
[2016-12-05] MEDS: SODIUM CHLORIDE 0.9% 1000ML 1,000 ML IV SCH ×2 (05:53→15:41)
[2016-12-05 07:28] VITALS: BP 100/54; PULSE 63; TEMP 36.3; O2SAT 90
[2016-12-05] MEDS: CEROVITE ADV FORMULA TAB PO SCH (09:00)
[2016-12-05] MEDS: DOCUSATE SODIUM 100 MG CAP PO SCH ×2 (09:00→20:25)
[2016-12-05] MEDS: METRONIDAZOLE 0.75% TOPICAL GEL 45 GM TUBE TOP SCH (09:00)
[2016-12-05] MEDS: POLYETHYLENE (MIRALAX) 17 GM PACK PO SCH (09:01)
[2016-12-05] MEDS: CHECK FENTANYL PATCH PLACEMENT SCH ×4 (09:02→23:50)
[2016-12-05] MEDS: BOOST BREEZE NUTRITION DRINK 1 BOX PO SCH (09:02)
--- NOTE | 2016-12-05 10:19 | Hospitalist Progress Note ---
Hospitalist Progress Note Date of Service Dec 05, 2016. Subjective Poor oral intake Respiratory: No cough, No dyspnea at rest, No dyspnea on exertion, No hemoptysis, No problem reported, No see HPI, No shortness of breath, No sputum, No wheezing Cardiovascular: No PND, No chest pain, No claudication, No edema, No orthopnea, No palpitations, No problem reported, No see HPI All Other Systems: Reviewed and Negative Medications Medications (Trade) Dose Ordered Sig/Ingrid Route Start Time Stop Time Status Last Admin Dose Admin Fentanyl (Duragesic Patch) 25 mcg Q3D@1999 TD 12/04/16 20:00 12/18/16 19:59 12/04/16 20:11 25 MCG Miscellaneous (Fentanyl Patch Remove & Waste) 1 ea Q3D@1958 N/A 12/04/16 19:59 01/03/17 19:58 12/04/16 20:18 1 EA Tamsulosin HCl (Flomax Cap) 0.8 mg HS PO 12/04/16 21:00 01/03/17 20:59 12/04/16 20:13 0.8 MG Enteral Nutritional Formula (Boost Breeze Nutritional Drink) 1 box DAILY PO 12/05/16 08:00 01/04/17 07:59 12/05/16 09:02 1 BOX Objective Vital Signs Date Time Temp Pulse Resp B/P Pulse Ox O2 Delivery O2 Flow Rate FiO2 12/05/16 09:00 Room Air 12/05/16 07:28 36.3 63 18 100/54 90 Room Air 12/05/16 00:00 91 Room Air 12/04/16 19:39 36.1 69 16 93/50 91 Room Air 12/04/16 16:10 90 Room Air 12/04/16 14:49 36.7 69 20 95/58 90 12/04/16 11:22 36.5 73 20 104/64 92 Physical Exam General Appearance: + cachetic Eyes: normal inspection ENT: hearing grossly normal Neck: supple, no adenopathy, no JVD Respiratory/Chest: chest non-tender, lungs clear Cardiovascular: regular rate, rhythm, no edema, no murmur Abdomen: normal bowel sounds, non tender, soft Neurologic/Psychiatric: alert, oriented x 3 Skin: + pallor Laboratory Results 12/03/16 13:34 Red Blood Count 3.00, Mean Corpuscular Volume 92.3, Mean Corpuscular Hemoglobin 30.0, Mean Corpuscular Hemoglobin Concent 32.5, Mean Platelet Volume 10.6 12/04/16 05:49 Test 12/03/16 13:34 12/03/16 15:53 12/04/16 05:49 White Blood Count 4.93 K/uL (4.8-10.8) Red Blood Count 3.00 M/uL (4.7-6.1) Hemoglobin 9.0 g/dL (14.0-18.0) Hematocrit 27.7 % (42-52) Mean Corpuscular Volume 92.3 fL (80-100) Mean Corpuscular Hemoglobin 30.0 pg (25-34) Mean Corpuscular Hemoglobin Concent 32.5 g/dl (32-36) Platelet Count 62 K/uL (130-400) Mean Platelet Volume 10.6 fL (7.4-10.4) RDW Standard Deviation 66.4 fL (36.4-46.3) RDW Coefficient of Variation 19.9 % (11.5-14.5) Nucleated RBC Absolute Count (auto) 0.31 K/uL (0-0) Neutrophils % (Manual) 72.1 % Lymphocytes % (Manual) 17.4 % Monocytes % (Manual) 3.5 % Eosinophils % (Manual) 0.9 % Metamyelocytes % 2.6 % Myelocytes % 3.5 % Nucleated Red Blood Cells % 6.4 % Neutrophils # (Manual) 3.55 K/uL (1.4-6.5) Total Absolute Neutrophils 3.55 K/uL (1.4-6.5) Lymphocytes # (Manual) 0.86 K/uL (1.2-3.4) Total Absolute Lymphocytes 0.86 K/uL (1.2-3.4) Monocytes # (Manual) 0.17 K/uL (0.11-0.59) Eosinophils # (Manual) 0.04 K/uL (0-0.5) Metamyelocytes # 0.13 K/uL (0-0) Myelocytes # 0.17 K/uL (0-0) Anisocytosis PRESENT Tear Drop Cells 1+ Prothrombin Time 14.0 SECONDS (9.0-12.0) Prothromb Time International Ratio 1.3 (0.9-1.1) Activated Partial Thromboplast Time 26.6 SECONDS (21.0-31.0) Partial Thromboplastin Ratio 1.0 Magnesium Level 2.1 mg/dl (1.8-2.4) Total Bilirubin 1.0 mg/dl (0.2-1) Aspartate Amino Transf (AST/SGOT) 563 U/L (15-37) Alanine Aminotransferase (ALT/SGPT) 48 U/L (12-78) Alkaline Phosphatase 279 U/L (45-117) Troponin I < 0.015 ng/ml (0-0.045) Total Protein 6.0 gm/dl (6.4-8.2) Albumin 2.5 gm/dl (3.4-5.0) Globulin 3.5 gm/dl (2.5-4.0) Albumin/Globulin Ratio 0.7 (0.9-2) Thyroid Stimulating Hormone (TSH) 1.200 uIu/ml (0.300-4.500) Urine Color YELLOW Urine Appearance CLEAR (CLEAR) Urine pH 5.5 (4.5-7.5) Urine Specific [place] 1.012 (1.000-1.030) Urine Protein NEG (NEG) Urine Glucose (UA) NEG (NEG) Urine Ketones NEG (NEG) Urine Occult Blood NEG (NEG) Urine Nitrite NEG (NEG) Urine Bilirubin NEG (NEG) Urine Urobilinogen NEG (NEG) Urine Leukocyte Esterase NEG (NEG) Anion Gap 10.0 mmol/L (3-11) Est Creatinine Clear Calc Drug Dose 64.1 ml/min Estimated GFR () 99.7 Estimated GFR (Non- 86.0 BUN/Creatinine Ratio 20.1 (10-20) Calcium Level 7.5 mg/dl (8.5-10.1) Total Creatine Kinase 1549 U/L (39-308) Date/Time Source Procedure Growth Status 12/03/16 15:53 Urine , Clean Catch Urine Culture - Preliminary NO GROWTH - LESS THAN 1,000 COLONIES/... Resulted Assessment and Plan Pleasant 71yo male with known, progressive stage 4 prostate cancer presenting with: 1. severe protein calorie malnutrition/weight loss/failure to thrive - due to the stage 4 prostate cancer itself. Esl Instructional Assistant consult to help with supplements as he is not tolerating standard supplements at home. IVF. Agree with hospice as previous. Will aim for tx to [facility] tomorrow. 2. dyspnea, LE edema - concerning for DVT/PE. CT chest is negative for PE. 3. abnormal LFTs - Likely due to liver mets. 4. rhabdomyolysis - due to lipitor? prolonged immobilization? other? stop lipitor hydrate CPK improving 5. BPH - continue flomax; check u/a and urine cx, r/o UTI. 6. DVT proph - platelets are in the 60s. Chemical means contraindicated. Dopplers are neg for DVT. 7. Mildly elevated INR, thrombocytopenia - if liver mets are seen then these 2 issues are secondary to this. 8. social - patient was already enrolled in hospice for the last week. Will continue such. Ask palliative care to see to help coordinate his care. SW consult for help with [facility] placement per his wishes. Will see if patient can be admitted under hospice status. 9. code status - DNR.
[2016-12-05 11:41] VITALS: BP 107/65; PULSE 85; TEMP 36; O2SAT 95
[2016-12-05 15:19] VITALS: BP 117/60; PULSE 73; TEMP 36.3; O2SAT 94
[2016-12-05] MEDS: OXYCODONE HCL IR 5 MG TAB (IMMEDIATE RELEASE) PO PRN (15:36)
[2016-12-05 16:00] VITALS: O2SAT 94
[2016-12-05] MEDS ORDERED: OXYCODONE/ACETAMINOPHEN 5-325 TAB PO PRN (17:30)
[2016-12-05 19:06] VITALS: BP 120/71; PULSE 72; TEMP 36.2; O2SAT 98
[2016-12-05] MEDS: TAMSULOSIN HCL 0.4 MG CAP PO SCH (20:25)
[2016-12-05] MEDS: ONDANSETRON INJ 2 MG/ML 2 ML VIAL IV PRN (21:09)
[2016-12-06] MEDS: SODIUM CHLORIDE 0.9% 1000ML 1,000 ML IV SCH ×2 (01:34→13:15)
[2016-12-06 04:58] VITALS: BP 120/68; PULSE 71; TEMP 36.1; O2SAT 90
[2016-12-06] MEDS: ACETAMINOPHEN 325 MG TAB PO PRN (05:15)
[2016-12-06 07:28] VITALS: BP 113/64; PULSE 66; TEMP 36.1; O2SAT 93
[2016-12-06] MEDS: CHECK FENTANYL PATCH PLACEMENT SCH (07:55)
[2016-12-06] MEDS: BOOST BREEZE NUTRITION DRINK 1 BOX PO SCH (07:56)
[2016-12-06] MEDS: CEROVITE ADV FORMULA TAB PO SCH (07:56)
[2016-12-06] MEDS: DOCUSATE SODIUM 100 MG CAP PO SCH (07:56)
[2016-12-06] MEDS: POLYETHYLENE (MIRALAX) 17 GM PACK PO SCH (07:57)
[2016-12-06] MEDS: METRONIDAZOLE 0.75% TOPICAL GEL 45 GM TUBE TOP SCH (07:57)
[2016-12-06 11:32] VITALS: BP 112/65; PULSE 83; TEMP 36.5; O2SAT 90
--- NOTE | 2016-12-06 13:44 | Discharge Instructions ---
Discharge Instructions Date of Service Dec 06, 2016. Admission Reason for Admission: Rhabdomyolysis,Severe Protein-Calorie Malnutrition Discharge Discharge Diagnosis / Problem: Metastatic prostate cancer Discharge Goals Goal(s): Improve nutritional status Activity Recommendations Activity Limitations: per Instructions/Follow-up section . Instructions / Follow-Up Instructions / Follow-Up Oncology Current Hospital Diet Patient's current hospital diet: Regular Diet, Low Lactose Diet Discharge Diet Recommended Diet: Regular Diet, Low Lactose Diet Pending Studies Studies pending at discharge: no Laboratory Results 12/03/16 13:34 Red Blood Count 3.00, Mean Corpuscular Volume 92.3, Mean Corpuscular Hemoglobin 30.0, Mean Corpuscular Hemoglobin Concent 32.5, Mean Platelet Volume 10.6 12/04/16 05:49 Test 12/03/16 13:34 12/03/16 15:53 12/04/16 05:49 White Blood Count 4.93 K/uL (4.8-10.8) Red Blood Count 3.00 M/uL (4.7-6.1) Hemoglobin 9.0 g/dL (14.0-18.0) Hematocrit 27.7 % (42-52) Mean Corpuscular Volume 92.3 fL (80-100) Mean Corpuscular Hemoglobin 30.0 pg (25-34) Mean Corpuscular Hemoglobin Concent 32.5 g/dl (32-36) Platelet Count 62 K/uL (130-400) Mean Platelet Volume 10.6 fL (7.4-10.4) RDW Standard Deviation 66.4 fL (36.4-46.3) RDW Coefficient of Variation 19.9 % (11.5-14.5) Nucleated RBC Absolute Count (auto) 0.31 K/uL (0-0) Neutrophils % (Manual) 72.1 % Lymphocytes % (Manual) 17.4 % Monocytes % (Manual) 3.5 % Eosinophils % (Manual) 0.9 % Metamyelocytes % 2.6 % Myelocytes % 3.5 % Nucleated Red Blood Cells % 6.4 % Neutrophils # (Manual) 3.55 K/uL (1.4-6.5) Total Absolute Neutrophils 3.55 K/uL (1.4-6.5) Lymphocytes # (Manual) 0.86 K/uL (1.2-3.4) Total Absolute Lymphocytes 0.86 K/uL (1.2-3.4) Monocytes # (Manual) 0.17 K/uL (0.11-0.59) Eosinophils # (Manual) 0.04 K/uL (0-0.5) Metamyelocytes # 0.13 K/uL (0-0) Myelocytes # 0.17 K/uL (0-0) Anisocytosis PRESENT Tear Drop Cells 1+ Prothrombin Time 14.0 SECONDS (9.0-12.0) Prothromb Time International Ratio 1.3 (0.9-1.1) Activated Partial Thromboplast Time 26.6 SECONDS (21.0-31.0) Partial Thromboplastin Ratio 1.0 Magnesium Level 2.1 mg/dl (1.8-2.4) Total Bilirubin 1.0 mg/dl (0.2-1) Aspartate Amino Transf (AST/SGOT) 563 U/L (15-37) Alanine Aminotransferase (ALT/SGPT) 48 U/L (12-78) Alkaline Phosphatase 279 U/L (45-117) Troponin I < 0.015 ng/ml (0-0.045) Total Protein 6.0 gm/dl (6.4-8.2) Albumin 2.5 gm/dl (3.4-5.0) Globulin 3.5 gm/dl (2.5-4.0) Albumin/Globulin Ratio 0.7 (0.9-2) Thyroid Stimulating Hormone (TSH) 1.200 uIu/ml (0.300-4.500) Urine Color YELLOW Urine Appearance CLEAR (CLEAR) Urine pH 5.5 (4.5-7.5) Urine Specific [place] 1.012 (1.000-1.030) Urine Protein NEG (NEG) Urine Glucose (UA) NEG (NEG) Urine Ketones NEG (NEG) Urine Occult Blood NEG (NEG) Urine Nitrite NEG (NEG) Urine Bilirubin NEG (NEG) Urine Urobilinogen NEG (NEG) Urine Leukocyte Esterase NEG (NEG) Anion Gap 10.0 mmol/L (3-11) Est Creatinine Clear Calc Drug Dose 64.1 ml/min Estimated GFR () 99.7 Estimated GFR (Non- 86.0 BUN/Creatinine Ratio 20.1 (10-20) Calcium Level 7.5 mg/dl (8.5-10.1) Total Creatine Kinase 1549 U/L (39-308) Date/Time Source Procedure Growth Status 12/03/16 15:53 Urine , Clean Catch Urine Culture - Final NO GROWTH - LESS THAN 1,000 COLONIES/ML Complete Medical Emergencies . Who to Call and When: Medical Emergencies: If at any time you feel your situation is an emergency, please call 911 immediately. . Non-Emergent Contact Non-Emergency issues call your: Primary Care Provider . Past History Medical & Surgical History: (1) Prostate cancer (2) Rhabdomyolysis (3) Severe protein-calorie malnutrition (4) Weakness . "Provider Documentation" section prepared by Alia Chirinos. . VTE Core Measure Inpt VTE Proph given/why not?: SCD's, Contraindicated
--- NOTE | 2016-12-06 13:48 | Discharge Summary ---
Discharge Summary Date of Service Dec 06, 2016. Discharge Summary Admission Date: Dec 03, 2016 at 15:28 Discharge Date: Dec 06, 2016 Discharge Disposition: retirement facility Principal Diagnosis: Metastatic prostate cancer Immunizations: Have You Had Influenza Vaccine: N/A History of Tetanus Vaccine?: Yes History of Pneumococcal: Yes History of Hepatitis B Vaccine: No Consultations: Palliative care Medication Reconciliation Continued Medications: Aspirin Enteric Coated (Ecotrin Or Generic) 81 Mg Tab 81 MG PO QPM, TAB Atorvastatin (Lipitor) 20 Mg Tab 20 MG PO HS, 0 Refills Azelaic Acid (Finacea) 15 % Aer 1 APPLN TOP DAILY Uses a gel Calcium Carbonate-Vitamin D W/ (Caltrate 600 Plus) 1 Tab Tab 2 TAB PO DAILY Denosumab (Xgeva) 120 Mg/1.7 Ml Inj 120 MG IM Q4WK Docusate Sodium (Colace) 100 Mg Cap 100 MG PO BID for 15 Days, #30 CAP Fentanyl (Fentanyl) 25 Mcg Tdsy 25 MCG TD [id number] Leuprolide Acetate (Lupron Depot) 30 Mg Kit 30 MG IM q4 months Metronidazole HCl (Metronidazole) 135 Appln/45 Gm Gel 1 APPLN TOP DAILY Multiple Vitamins W/ Minerals (Centrum Silver Adult 50+) 1 Tab Tab 1 TAB PO DAILY Multivitamin (Multivitamin) Tab 1 TAB PO QPM, TAB Ocuvite Preservision (Ocuvite Preservision) 1 Tab Tab 1 TAB PO QAM, 0 Refills [place]-3 Fatty Acids (Fish Oil) 1,200 Mg Cap 2400 MG PO DAILY Oxycodone HCl (Oxycodone HCl) 5 Mg Tab 5 MG PO Q4 PRN for Pain Prednisone (Prednisone) 5 Mg Tab 5 MG PO BID, TAB Senna/Docusate Sod (Senokot S) 1 Tab Tab 2 TAB PO DAILY PRN for Constipation, TAB Tamsulosin Hcl (Flomax) 0.4 Mg Cap 0.8 MG PO DAILY, CAP Discharge Exam Physical Exam: General Appearance: + cachetic Eyes: normal inspection ENT: hearing grossly normal Neck: supple, no JVD Respiratory/Chest: chest non-tender, lungs clear Cardiovascular: regular rate, rhythm, no edema, no murmur Abdomen / GI: normal bowel sounds, non tender, soft Extremities: normal inspection Skin: + pallor Hospital Course Pleasant 71yo male with known, progressive stage 4 prostate cancer presenting with: 1. severe protein calorie malnutrition/weight loss/failure to thrive - due to the stage 4 prostate cancer itself. Fireworks Display Specialist consult to help with supplements as he is not tolerating standard supplements at home. IVF. Agree with hospice as previous. Will aim for tx to [facility] . 2. dyspnea, LE edema - concerning for DVT/PE. CT chest is negative for PE. 3. abnormal LFTs - Likely due to liver mets. 4. rhabdomyolysis - due to lipitor? prolonged immobilization. Will restart lipitor. 5. BPH - continue flomax; check u/a and urine cx, r/o UTI. 6. DVT proph - platelets are in the 60s. Chemical means contraindicated. Dopplers are neg for DVT. 7. Mildly elevated INR, thrombocytopenia - if liver mets are seen then these 2 issues are secondary to this. 8. social - patient was already enrolled in hospice for the last week. Will continue such. Ask palliative care to see to help coordinate his care. SW consult for help with [facility] placement per his wishes. Will see if patient can be admitted under hospice status. 9. code status - DNR. Total Time Spent: Less than 30 minutes This includes examination of the patient, discharge planning, medication reconciliation, and communication with other providers. Discharge Instructions Please refer to the electronic Patient Visit Report (Discharge Instructions) for additional information.
[2016-12-06 13:59] VITALS: BP 112/65; PULSE 83; TEMP 36.5; O2SAT 90
== END 2016-12-06 14:59 | disposition hospice, inpatient (51) | DRG 722 ==
LOC: ENRESERVDT → ENRESERVTM → C.EDB 12:53 → C.4E 15:28
PROVIDERS: ADMIT Internal Medicine; ATTEND Internal Medicine
DX: C61 Malignant neoplasm of prostate (principal); E43 Unspecified severe protein-calorie malnutrition; N18.6 End stage renal disease; Z68.1 Body mass index [BMI] 19.9 or less, adult; C78.7 Secondary malignant neoplasm of liver and intrahepatic bile duct; C78.00 Secondary malignant neoplasm of unspecified lung; C78.1 Secondary malignant neoplasm of mediastinum; C79.70 Secondary malignant neoplasm of unspecified adrenal gland; E27.49 Other adrenocortical insufficiency; M62.82 Rhabdomyolysis; T46.6X5A Adverse effect of antihyperlipidemic and antiarteriosclerotic drugs, initial encounter; E86.0 Dehydration; R62.7 Adult failure to thrive; R06.00 Dyspnea, unspecified; R19.7 Diarrhea, unspecified; R63.0 Anorexia; R60.0 Localized edema; N40.0 Benign prostatic hyperplasia without lower urinary tract symptoms; R79.1 Abnormal coagulation profile; D69.59 Other secondary thrombocytopenia; Z66 Do not resuscitate; Z51.5 Encounter for palliative care; Z79.82 Long term (current) use of aspirin; Z79.52 Long term (current) use of systemic steroids; Z79.891 Long term (current) use of opiate analgesic; Z79.899 Other long term (current) drug therapy